=== PATIENT | female | born 1970 | race Caucasian/White ===

== ENCOUNTER 2018-02-05 09:10 | Emergency (ER) | payer BC ==
[2018-02-05 10:03] VITALS: BP 124/70
--- NOTE | 2018-02-05 10:49 | UC ---
General HPI - HPI Summary HPI Summary: Wednesday of this week developed a sore throat. she f/u with her pcp who dx uri. self tx with salt water gargle and vit c. wednesday, developed a cough with congestion and green sputum. , lost voice. Has subjective F/C's but no SOB or wheezing. has hx of asthma and uses Breo. states not asthma flare. - History of Current Complaint Hx Obtained From: Patient Hx Last Menstrual Period: 01/29/14 had tubal Onset/Duration: Gradual Onset Pain Intensity: 0 Aggravating: nothing Alleviating: nothing Associated Signs & Symptoms: Positive: Cough. Negative: Chest Pain, Hemoptysis , SOB <Rianna Martinez - Last Filed: 02/05/18 10:44> <Sandra Bevaer - Last Filed: 02/05/18 11:48> - History of Current Complaint Chief Complaint: UCRespiratory Stated Complaint: COUGH Time Seen by Provider: 02/05/18 10:09 - Allergy/Home Medications Allergies/Adverse Reactions: Allergies Allergy/AdvReac Type Severity Reaction Status Date / Time Adhesive Tape Allergy Rash Verified 02/05/18 09:53 latex Allergy Rash Verified 02/05/18 09:53 simvastatin Allergy Difficulty Verified 02/05/18 09:53 Breathing Home Medications: Home Medications Ascorbic Acid TAB* [Vitamin C TAB*] 1,000 mg PO TID 02/05/18 [History Confirmed 02/05/18] Fluticasone/Vilanterol [Breo Ellipta 200-25 Mcg INH] 1 each IH DAILY 02/05/18 [ History Confirmed 02/05/18] Guaifenesin/DM (SUGAR FREE)* [Diabetic Tussin DM*] 5 ml PO Q4H 02/05/18 [ History Confirmed 02/05/18] Lipase/Protease/Amylase [Zenpep Dr 40,000 Unit Capsule] 1 each PO BID 02/05/18 [ History Confirmed 02/05/18] guaiFENesin ER TAB [Mucinex*] 600 mg PO BID 02/05/18 [History Confirmed 02/05/18 ] PMH/Surg Hx/FS Hx/Imm Hx Endocrine History: Diabetes Respiratory History: Asthma - Surgical History Surgical History: Yes Surgery Procedure, Year, and Place: Tonsillectomy 12/15/12 [facility], Tubal ligation 2004- [facility] 11/1985 and 03/1994 [facility]. pancreatic stent - Family History Known Family History: Positive: None - Social History Occupation: Employed Full-time Lives: With Family Alcohol Use: None Substance Use Type: None Smoking Status (MU): Former Smoker Type: Cigarettes Amount Used/How Often: generally 10 cigarettes daily When Did the Patient Quit Smoking/Using Tobacco: 3 months ago Household Exposure Type: Cigarettes - Immunization History Hx Tetanus, Diphtheria Vaccination: No Vaccination Up to Date: Yes <Rianna Martinez - Last Filed: 02/05/18 10:44> Review of Systems Constitutional: Fever, Chills Skin: Negative Eyes: Negative ENT: Sore Throat Respiratory: Cough Cardiovascular: Negative Gastrointestinal: Negative Genitourinary: Negative Motor: Negative Neurovascular: Negative Musculoskeletal: Negative Neurological: Negative Psychological: Negative Is Patient Immunocompromised?: No All Other Systems Reviewed And Are Negative: Yes <Rianna Martinez - Last Filed: 02/05/18 10:44> Physical Exam Triage Information Reviewed: Yes Appearance: Well-Appearing Vital Signs: Initial Vital Signs Temp 99.2 F 02/05/18 09:58 Pulse 64 02/05/18 09:58 Resp 02/05/18 09:58 BP 124/70 02/05/18 09:58 Pulse Ox 100 02/05/18 09:58 Vital Signs Reviewed: Yes Eyes: Positive: Conjunctiva Clear ENT: Positive: Pharyngeal erythema, TMs normal, Hoarse voice, Uvula midline. Negative: Nasal congestion, Nasal drainage, Tonsillar swelling, Tonsillar exudate, Trismus, Muffled voice Neck: Positive: Supple, Nontender, No Lymphadenopathy Respiratory: Positive: Lungs clear, Normal breath sounds, Other: - Cough is congested. Cardiovascular: Positive: RRR, No Murmur Abdomen Description: Positive: Nontender, No Organomegaly, Soft Bowel Sounds: Positive: Present Musculoskeletal: Positive: ROM Intact Neurological: Positive: Alert Psychological: Positive: Age Appropriate Behavior Skin Exam: Normal <Rianna Martinez - Last Filed: 02/05/18 10:44> Vital Signs: Initial Vital Signs Temp 99.2 F 02/05/18 09:58 Pulse 64 02/05/18 09:58 Resp 02/05/18 09:58 BP 124/70 02/05/18 09:58 Pulse Ox 100 02/05/18 09:58 <Sandra Beaver - Last Filed: 02/05/18 11:48> Diagnostics - Laboratory Diagnostic Studies Completed/Ordered: rapid nstrep=neg <Rianna Martinez - Last Filed: 02/05/18 10:44> Course/Dx - Course Course Of Treatment: non toxic. rapid strep=neg. chronic lung dz with subjective fever and worsening pulmonary symptoms thus will cover with antibiotic. pt declined steroids. - Differential Dx - Multi-Symptom Provider Diagnoses: URI, pharyngitis, asthma flare <Rianna Martinez - Last Filed: 02/05/18 10:44> Discharge - Sign-Out/Discharge Documenting (check all that apply): Discharge/Admit/Transfer - Billing Disposition and Condition Condition: STABLE Disposition: HOME <Rianna Martinez - Last Filed: 02/05/18 10:44> - Billing Disposition and Condition Condition: STABLE Disposition: HOME <Sandra Beaver - Last Filed: 02/05/18 11:48> - Discharge Plan Condition: Stable Disposition: HOME Prescriptions: DOXYcycline CAP(*) [DOXYcycline 100MG CAP(*)] 100 mg PO BID 7 Days #14 cap Patient Education Materials: Asthma (ED), Laryngitis (ED), Upper Respiratory Infection (DC) Referrals: Mahamed Shah MD [Primary Care Provider] - 5 Days Additional Instructions: CONTINUE NEBULIZER TREATMENTS NEEDED. Attestation Statement User Type: Provider - I was available for consult. This patient was seen by the MAULIK. The patient was not presented to, seen by, or examined by me. -Baljit <Sandra Beaver - Last Filed: 02/05/18 11:48>
== END 2018-02-05 11:32 | disposition home or self-care (01) ==
LOC: UCCORT 09:10
DX: J06.9 Acute upper respiratory infection, unspecified (principal); J02.9 Acute pharyngitis, unspecified; J45.909 Unspecified asthma, uncomplicated; Z87.891 Personal history of nicotine dependence; Z88.8 Allergy status to other drugs, medicaments and biological substances
CPT/HCPCS: 87651; 99202; G0463